=== PATIENT | male | born 1995 | race Caucasian/White ===

== ENCOUNTER 2025-09-08 05:56 | Inpatient (IN) | payer BC, OTHER ==
[~2025-09-08] VITALS: Ht 180.3 cm; Wt 90.0 kg
[2025-09-08 06:50] VITALS: O2SAT 96
[2025-09-08] MEDS: SODIUM CHLORIDE 0.9% 1,000 ML IVB ONE (06:53)
[2025-09-08] MEDS: KETOROLAC TROMETH 30 MG/ML 1ML VIAL IV ONE (06:53)
[2025-09-08] MEDS: ONDANSETRON HCL 4 MG/2 ML VIAL IV ONE ×2 (06:53→07:34)
[2025-09-08 07:00] LABS: Potassium 3.8 mmol/L (3.5-5.1); Sodium 142 mmol/L (136-145)
[2025-09-08 07:01] LABS: Anion Gap 14 (5-15); Calcium 9.5 mg/dL (8.7-10.4); Carbon Dioxide 21 mmol/L (20-31)
--- NOTE | 2025-09-08 07:02 | ED.PDOC ---
GI ASSESSMENT HPI Comments 30 y.o male presents to the ED for a chief complaint of LUQ pain radiating to LLQ pain associated with nausea and vomiting that started 2 hours prior to arrival. Patient describes pain as sharp, constant and has no alleviating factors. He mentions pain woke him from his sleep. No history of previous GI concerns such as Crohn's, diverticulitis or IBS. He denies any marijuana or tobacco use. Chief Complaint: Abdominal Pain Time Seen by MD: 06:30 Reviewed Notes: Nurses Notes, Medications, Allergies Allergies: Coded Allergies: NO KNOWN ALLERGIES (Unverified , 09/08/25) Information Source: Patient Mode of Arrival: Ambulatory Timing: Hours Duration: Since onset Quality: Sharp Vomitus: Hard Stool: Normal Severity: Moderate Recent: None Recent Hx of: None Pain Location: LUQ, LLQ Modifying Factors: Nothing Associated sign and symptoms: Nausea, Vomiting, Abdominal Pain Past Medical History PAST MEDICAL HISTORY: Denies Surgical History: Denies all surgeries Family History Family History: Reviewed,noncontributory to illness Social History Smoker: Non-Smoker Alcohol: Occasionally Drugs: Denies Drug Use Lives In: Home EENTM: denies: blurred vision, double vision, ear bleeding, ear discharge, ear drainage, ear pain, ear ringing, eye pain, eye redness, hearing loss, mouth pain, mouth swelling, nasal discharge, nose bleeding, nose congestion, nose pain, photophobia, tearing, throat pain, throat swelling, voice changes, others Respiratory: denies: cough, hemoptysis, orthopnea, SOB at rest, shortness of breath, SOB with excertion, stridor, wheezing, others Cardiovascular: denies: chest pain, dizzy spells, diaphoresis, Dyspnea on exertion, edema, irregular heart beat, left arm pain, lightheadedness, palpitations, PND, syncope, others Gastrointestinal: reports: abdominal pain, nausea, vomiting; denies: abdomen distended, blood streaked bowels, constipated, diarrhea, dysphagia, difficulty swallowing, hematemesis, melena, poor appetite, poor fluid intake, rectal bleeding, rectal pain, others Genitourinary: denies: burning, dysuria, flank pain, frequency, hematuria, incontinence, penile discharge, penile sore, pain, testicle pain, testicle swelling, urgency, others Neurological: denies: dizziness, fainting, headache, left sided numbness, left sided weakness, numbness, paresthesia, pre-existing deficit, right sided numbness, right sided weakness, seizure, speech problems, tingling, tremors, weakness, others Musculoskeletal: denies: back pain, gout, joint pain, joint swelling, muscle pain, muscle stiffness, neck pain, others Integumetry: denies: bruises, change in color, change in hair/nails, dryness, laceration, lesions, lumps, rash, wounds, others Allergic/Immunocompromised: denies: Difficulty Healing, Frequent Infections, Hives, Itching, others Hematologic/Lymphatic: denies: anemia, blood clots, easy bleeding, easy bruising, swollen glands, others Endocrine: denies: excessive hunger, excessive sweating, excessive thirst, excessive urination, flushing, intolerance to cold, intolerance to heat, unexplained weight gain, unexplained weight loss, others Psychiatric: denies: anxiety, bipolar disorder, depression, hopeless, panic disorder, schizophrenia, sleepless, suicidal, others All Other Systems: Reviewed and Negative Physical Exam General Appearance: Moderate Distress HEENT: Normal ENT Inspection, Pharynx Normal, TMs Normal Neck: Full Range of Motion, Non-Tender, Normal, Normal Inspection Respiratory: Chest Non-Tender, Lungs Clear, No Accessory Muscle Use, No Respiratory Distress, Normal Breath Sounds Cardiovascular: No Edema, No JVD, No Murmur, No Gallop, Normal Peripheral Pulses, Regular Rate/Rhythm Breast Exam: Deferred Gastrointestinal: No Organomegaly, Non Tender, No Pulsatile Mass, Normal Bowel Sounds, Soft Genitalia: Deferred Pelvic: Deferred Rectal: Deferred Extremities: No calf tenderness, Normal capillary refill, Normal inspection, Normal range of motion, Non-tender, No pedal edema Musculoskeletal : Apperance: Normal Neurologic: Alert, 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 Was a procedure done?: No GI differential Dx Differential Diagnosis: Constipation, Diverticular disease, Esophagitis, Gastritis/PUD, Gastroenteritis, Inflammatory BD, Pancreatitis, Dehydration, Electrolyte Imbalance, Food Poisoning, Viral X-Ray, Labs, Meds, VS Vital Signs Date Time Temp Pulse Resp B/P (MAP) Pulse Ox O2 Delivery O2 Flow Rate FiO2 09/08/25 11:00 88 21 94 Room Air* 0 21 09/08/25 11:00 88 21 128/53 (78) 94 09/08/25 10:07 96 Room Air* 0 21 09/08/25 10:00 62 18 110/52 (71) 99 09/08/25 09:00 64 18 118/68 (85) 99 09/08/25 08:20 76 12 163/98 09/08/25 08:02 90 09/08/25 08:00 84 14 163/98 (119) 97 09/08/25 07:36 97.7 78 21 162/103 (122) 98 97.7 09/08/25 07:34 84 20 160/112 09/08/25 07:25 96 Room Air* 0 21 09/08/25 06:56 97.6 81 13 166/118 (134) 97 97.6 09/08/25 06:50 96 Room Air* 0 21 09/08/25 05:58 97.0 83 24 172/102 98 97.0 Lab Test 09/08/25 10:50 09/08/25 06:40 Range/Units Urine Color Light-yellow Yellow Urine Clarity Hazy H Clear Urine pH 5.5 5.0-9.0 Urine Specific [place] 1.015 1.001-1.035 Urine Protein Negative Negative Urine Ketones Negative Negative Urine Blood 3+ H Negative /uL Urine Nitrite Negative Negative Urine Bilirubin Negative Negative Urine Urobilinogen Normal Negative mg/dL Urine Leukocyte Esterase Negative Negative /uL Urine RBC 19 0 - 3 /hpf Urine Microscopic WBC 1 0-3 /HPF Urine Squamous Epithelial Cells None seen <5 /hpf Urine Bacteria None seen None Seen /hpf Urine Mucus Few None Seen Urine Glucose Normal Normal mg/dL Sodium Level 142 136-145 mmol/L Potassium Level 3.8 3.5-5.1 mmol/L Chloride Level 107 98-107 mmol/L Carbon Dioxide Level 21 20-31 mmol/L Anion Gap 14 5-15 Blood Urea Nitrogen 10 9-23 mg/dL Creatinine 1.32 H 0.700-1.30 mg/dL Glomerular Filtration Rate Calc 75 >90 mL/min BUN/Creatinine Ratio 7.6 L 10.0-20.0 Serum Glucose 136 H 74-106 mg/dL Calcium Level 9.5 8.7-10.4 mg/dL Current Medications Medications (Trade) Dose Ordered Sig/Hemalatha Route Start Time Stop Time Status Last Admin Ondansetron HCl (Zofran) 4 mg ONCE ONCE IV 09/08/25 06:45 09/08/25 06:46 DC 09/08/25 06:53 Sodium Chloride 1,000 ml @ 1,000 mls/hr Q1H ONCE IVB 09/08/25 06:45 09/08/25 07:44 DC 09/08/25 06:53 Ketorolac Tromethamine (Toradol Injection) 30 mg ONCE ONCE IV 09/08/25 06:45 09/08/25 06:46 DC 09/08/25 06:53 Morphine Sulfate 2 mg ONCE ONCE IV 09/08/25 07:30 09/08/25 07:31 DC 09/08/25 07:34 Ondansetron HCl (Zofran) 4 mg ONCE ONCE IV 09/08/25 07:30 09/08/25 07:31 DC 09/08/25 07:34 [place] [address] Ph: [phone] DIAGNOSTIC IMAGING Diagnostic Imaging Report : [id number] Signed PATIENT: HUMA CHRISTINA ACCT: [id number] UNIT: [id number] : 1995 LOC: ER ROOM / BED: / AGE / SEX: 30 / M ADM STATUS: REG ER SERVICE 0642 ORDERING PHYSICIAN: ARCADIO MCNAIR MD PROCEDURE(s): ABPL - CT AB PEL WO CON-NO ORAL OR IV REASON: stone ORDER NUMBER(s): [id number], ACCESSION NUMBER(s): [id number] Exam: CT CT AB PEL WO CON-NO ORAL OR IV History: stone Comparison Study: None Technique: Multidetector spiral CT of the abdomen was performed from lung bases to pubic symphysis. Imaging was performed without IV contrast. Axial, coronal and sagittal multiplanar reformats were obtained from the axial data set by the technologist. Radiation Dose : 1. Abdomen/Pelvis: CTDIvol 10.04 mGy, DLP 547.24 mGy*cm. Findings: Evaluation of solid organs is limited due to lack of intravenous contrast use. Lung Bases: No acute or significant lung base finding. Normal heart size. No pleural or pericardial effusion. Liver: Borderline hepatomegaly. No focal lesions. Gallbladder and Biliary Tree: Unremarkable Spleen: Unremarkable Pancreas: The pancreas is grossly normal in appearance. Adrenal Glands: Unremarkable Kidneys: Multiple bilateral nonobstructing renal stones are present. Mild left hydroureteronephrosis. Bladder: Grossly unremarkable for degree of distention. Bowel: The stomach is grossly normal in appearance. Small bowel and colon are normal in caliber and distribution. The appendix is unremarkable. Ascites: Absent Lymphadenopathy: No mesenteric, retroperitoneal or periportal lymphadenopathy. Abdominal Wall and Mesentery: Unremarkable. Vasculature: The visualized abdominal aorta is normal in size and caliber. Evaluation of abdominal and pelvic vessels is limited due to lack of intravenous contrast. Pelvic Organs: Unremarkable Musculoskeletal: No aggressive focal bony lesions, acute fractures or dislocation. Hiatal Hernia: Small hiatal hernia. Ureters: 0.3 cm stone in the distal left ureter. IMPRESSION: Mild left hydroureteronephrosis with 0.3 cm stone in the distal left ureter. Multiple bilateral nonobstructing renal stones. Small hiatal hernia. Radiation optimization: All CT scans at this facility use at least one of these dose optimization techniques: automated exposure control mA and/or kV adjustment per patient size (includes targeted exams where dose is matched to clinical indication) or iterative reconstruction. ATED BY: RASHEED LEW MD DICTATED DATE/TIME: 09/08/25845 SIGNED BY: RASHEED LEW MD SIGNED DATE/TIME: 09/08/25845 CC: Patient alert. Complaining of abdominal pain. Vitals stable. Answering questions. Establish intravenous access. Was given fluids. CT scan reviewed shows Kidney stone. Was given pain medication. Explained to the patient. Continue monitoring. Time of 1ST Reevaluation: 06:59 Reevaluation 1ST: Unchanged Patient Education/Counseling: Diagnosis, Treatment, Prognosis Family Education/Counseling: Diagnosis, Treatment, Prognosis SEPSIS Sepsis Screen Date sepsis recognized/suspect: Sep 08, 2025 Time Sepsis recognized/suspect: 0600 Recent Procedure: No On Antibiotic Therapy: No Respiratory Rate >20: No Heart Rate >90: No Temp<36 C (96.8 F) or >38.3 C: No SBP <90 or MAP <65 mmHG: No New Acute Mental Status Change: No Is the patient on CPAP, BIPAP,: No Physician Orders Ct Ab Pel Wo Con-No Oral Or Iv (09/08/25 06:42) Vital Signs Date Time Temp Pulse Resp B/P (MAP) Pulse Ox O2 Delivery O2 Flow Rate FiO2 09/08/25 11:00 88 21 94 Room Air* 0 21 09/08/25 11:00 88 21 128/53 (78) 94 09/08/25 10:07 96 Room Air* 0 21 09/08/25 10:00 62 18 110/52 (71) 99 09/08/25 09:00 64 18 118/68 (85) 99 09/08/25 08:20 76 12 163/98 09/08/25 08:02 90 09/08/25 08:00 84 14 163/98 (119) 97 09/08/25 07:36 97.7 78 21 162/103 (122) 98 97.7 09/08/25 07:34 84 20 160/112 09/08/25 07:25 96 Room Air* 0 09/08/25 06:56 97.6 81 13 166/118 (134) 97 97.6 09/08/25 06:50 96 Room Air* 0 09/08/25 05:58 97.0 83 24 172/102 98 97.0 Medications Medications Dose Ordered Sig/Hemalatha Route Start Time Stop Time Status Last Admin Dose Admin Ketorolac Tromethamine 30 mg ONCE ONCE IV 09/08/25 06:45 09/08/25 06:46 DC 09/08/25 06:53 Morphine Sulfate 2 mg ONCE ONCE IV 09/08/25 07:30 09/08/25 07:31 DC 09/08/25 07:34 Ondansetron HCl 4 mg ONCE ONCE IV 09/08/25 06:45 09/08/25 06:46 DC 09/08/25 06:53 Ondansetron HCl 4 mg ONCE ONCE IV 09/08/25 07:30 09/08/25 07:31 DC 09/08/25 07:34 Sodium Chloride 1,000 ml @ 1,000 mls/hr Q1H ONCE IVB 09/08/25 06:45 09/08/25 07:44 DC 09/08/25 06:53 Departure 1 Departure Time of Disposition: 17:40 Impression: Primary Impression: Acute abdominal pain Additional Impression: Kidney stone Disposition: 09 ADMITTED INPATIENT Admit to: Med Surg Condition: Guarded Critical Care Note Critical Care Time?: No Stability Stability form required: No I personally scribed for ARCADIO MCNAIR MD ([email or web address]) on 09/08/25 at 07:02. Electronically submitted by Jami Vickers ([facility]). I personally scribed for ARCADIO MCNAIR MD ([email or web address]) on 09/08/25 at 10:29. Electronically submitted by Marcell Alva ([email or web address]). ARCADIO MCNAIR MD Sep 08, 2025 07:02
[2025-09-08 07:05] LABS: Chloride 107 mmol/L (98-107)
[2025-09-08 07:06] LABS: BUN/Creatinine Ratio 7.6 (10.0-20.0); Blood Urea Nitrogen 10 mg/dL (9-23)
[2025-09-08 07:09] LABS: Glucose 136 mg/dL (74-106)
[2025-09-08 07:25] VITALS: O2SAT 96
[2025-09-08] MEDS: MORPHINE SULFATE INJ 2 MG/ml SYRG IV ONE (07:34)
[2025-09-08] MEDS: PROCHLORPERAZINE EDISYLATE 5 MG/ML 2ML VIAL IV ONE (08:17)
--- NOTE | 2025-09-08 08:49 | DVH ---
Exam: CT CT AB PEL WO CON-NO ORAL OR IV History: stone Comparison Study: None Technique: Multidetector spiral CT of the abdomen was performed from lung bases to pubic symphysis. I maging was performed without IV contrast. Axial, coronal and sagittal multiplanar reformats were obta ined from the axial data set by the technologist. Radiation Dose : 1. Abdomen/Pelvis: CTDIvol 10.04 mGy, DLP 547.24 mGy*cm. Findings: Evaluation of solid organs is limited due to lack of intravenous contrast use. Lung Bases: No acute or significant lung base finding. Normal heart size. No pleural or pericardial e ffusion. Liver: Borderline hepatomegaly. No focal lesions. Gallbladder and Biliary Tree: Unremarkable Spleen: Unremarkable Pancreas: The pancreas is grossly normal in appearance. Adrenal Glands: Unremarkable Kidneys: Multiple bilateral nonobstructing renal stones are present. Mild left hydroureteronephrosis. Bladder: Grossly unremarkable for degree of distention. Bowel: The stomach is grossly normal in appearance. Small bowel and colon are normal in caliber and d istribution. The appendix is unremarkable. Ascites: Absent Lymphadenopathy: No mesenteric, retroperitoneal or periportal lymphadenopathy. Abdominal Wall and Mesentery: Unremarkable. Vasculature: The visualized abdominal aorta is normal in size and caliber. Evaluation of abdominal an d pelvic vessels is limited due to lack of intravenous contrast. Pelvic Organs: Unremarkable Musculoskeletal: No aggressive focal bony lesions, acute fractures or dislocation. Hiatal Hernia: Small hiatal hernia. Ureters: 0.3 cm stone in the distal left ureter. IMPRESSION: Mild left hydroureteronephrosis with 0.3 cm stone in the distal left ureter. Multiple bilateral nonobstructing renal stones. Small hiatal hernia. Radiation optimization: All CT scans at this facility use at least one of these dose optimization maia hniques: automated exposure control mA and/or kV adjustment per patient size (includes targeted exam s where dose is matched to clinical indication) or iterative reconstruction.
[2025-09-08 11:00] VITALS: PULSE 88; RESP 21; O2SAT 94
[2025-09-08 11:21] LABS: Urine Protein, UAD Negative (Negative)
[2025-09-08] MEDS ORDERED: NITROGLYCERIN 0.4 MG SL TAB SL PRN (13:30)
[2025-09-08] MEDS ORDERED: MORPHINE SULFATE INJ 2 MG/ml SYRG IV PRN (13:30)
[2025-09-08] MEDS ORDERED: ACETAMINOPHEN 325 MG TAB PO PRN (13:30)
--- NOTE | 2025-09-08 13:30 | DVHHPRES ---
History of Present Illness Resident Creating Document: ANNMARIE ANDRADE RESIDENT History of Present Illness 30 y.o male presents to the ED for a chief complaint of LUQ pain radiating to LLQ pain associated with nausea and vomiting , Pt presents with severe left- sided flank pain that began at 5 AM. The pain was described as extremely severe, rating 10 out of 10 in intensity. The pain was localized to the left flank area without radiation to the lower abdomen or back. The patient reports feeling better after the initial episode resolved around 8 AM while he was working. He denies any other medical conditions and reports not taking any medications at home. Past Social History - Substance Use: Current tobacco smoker, denies marijuana or other recreational drugs, alcohol . reports drinking every week Review of Systems Review of Systems CONSTITUTIONAL: Denies weight loss, fever and chills. HEENT: Denies changes in vision and hearing. RESPIRATORY: Denies SOB and cough. CV: Denies palpitations and chest pain. Gastrointestinal: Positive for nausea with dry heaving. : Denies dysuria and urinary frequency. MSK: Denies myalgia and joint pain. SKIN: Denies rash and pruritus. NEUROLOGICAL: Denies headache Allergies: Coded Allergies: NO KNOWN ALLERGIES (Unverified , 09/08/25) Exam Vital Signs Vital Signs Date Time Temp Pulse Resp B/P (MAP) Pulse Ox O2 Delivery O2 Flow Rate FiO2 09/08/25 11:00 88 21 94 Room Air* 0 21 09/08/25 11:00 128/53 (78) 09/08/25 07:36 97.7 97.7 Exam GENERAL: Not in acute distress. HEENT: EOMI, Moist mucous membranes. No scleral icterus. No cervical lymphadenopathy. LUNGS: Clear to auscultation bilaterally. No accessory muscle use. CARDIOVASCULAR: Regular rate and rhythm. No murmur. No JVD. ABDOMEN: Abd is tender. EXTREMITIES: No edema. Nontender. SKIN: No rashes or lesions. Warm. NEUROLOGIC: Alert and oriented X3 Labs/Xrays Labs Test 09/08/25 10:50 09/08/25 06:40 Range/Units Urine Color Light-yellow Yellow Urine Clarity Hazy H Clear Urine pH 5.5 5.0-9.0 Urine Specific [place] 1.015 1.001-1.035 Urine Protein Negative Negative Urine Ketones Negative Negative Urine Blood 3+ H Negative /uL Urine Nitrite Negative Negative Urine Bilirubin Negative Negative Urine Urobilinogen Normal Negative mg/dL Urine Leukocyte Esterase Negative Negative /uL Urine RBC 19 0 - 3 /hpf Urine Microscopic WBC 1 0-3 /HPF Urine Squamous Epithelial Cells None seen <5 /hpf Urine Bacteria None seen None Seen /hpf Urine Mucus Few None Seen Urine Glucose Normal Normal mg/dL Sodium Level 142 136-145 mmol/L Potassium Level 3.8 3.5-5.1 mmol/L Chloride Level 107 98-107 mmol/L Carbon Dioxide Level 21 20-31 mmol/L Anion Gap 14 5-15 Blood Urea Nitrogen 10 9-23 mg/dL Creatinine 1.32 H 0.700-1.30 mg/dL Glomerular Filtration Rate Calc 75 >90 mL/min BUN/Creatinine Ratio 7.6 L 10.0-20.0 Serum Glucose 136 H 74-106 mg/dL Calcium Level 9.5 8.7-10.4 mg/dL SEPSIS Sepsis Screen Date sepsis recognized/suspect: Sep 08, 2025 Time Sepsis recognized/suspect: 1007 Recent Procedure: No On Antibiotic Therapy: No Respiratory Rate >20: No Heart Rate >90: No Temp<36 C (96.8 F) or >38.3 C: No SBP <90 or MAP <65 mmHG: No New Acute Mental Status Change: No Is the patient on CPAP, BIPAP,: No Physician Orders Ct Ab Pel Wo Con-No Oral Or Iv (09/08/25 06:42) Electrocardigram (09/08/25 08:15) Admit (09/08/25 13:26) Code Status (09/08/25 13:26) Full Liq Diet (09/08/25 Lunch) Sodium Chloride Lock (Saline Lock Ns) (09/08/25 14:00) 0.9% Ns 1000 Ml (09/08/25 13:30) Hydrocodone-Acet 5/325mg Tab ([facility] 5/32 (09/08/25 13:30) Complete Blood Count (09/09/25 04:00) Comprehensive Metabolic Panel (09/09/25 04:00) Acetaminophen Tablet (Tylenol Tablet) (09/08/25 13:30) Morphine Sulfate Injection (09/08/25 13:30) Nitroglycerin Sublingual (Ntrostat Subli (09/08/25 13:30) Morphine Sulfate Injection (09/08/25 13:30) Oxygen By Nasal Cannula (09/08/25 13:26) Stat Ekg For Chest Pain (09/08/25 13:26) Notify Md Of Changes From Base (09/08/25 13:26) Tamsulosin Hydrochloride (Flomax) (09/08/25 13:30) Vital Signs Date Time Temp Pulse Resp B/P (MAP) Pulse Ox O2 Delivery O2 Flow Rate FiO2 09/08/25 11:00 88 21 94 Room Air* 0 21 09/08/25 11:00 88 21 128/53 (78) 94 09/08/25 10:07 96 Room Air* 0 21 09/08/25 10:00 62 18 110/52 (71) 99 09/08/25 09:00 64 18 118/68 (85) 99 09/08/25 08:20 76 12 163/98 09/08/25 08:02 90 09/08/25 08:00 84 14 163/98 (119) 97 09/08/25 07:36 97.7 78 21 162/103 (122) 98 97.7 09/08/25 07:34 84 20 160/112 09/08/25 07:25 96 Room Air* 0 21 09/08/25 06:56 97.6 81 13 166/118 (134) 97 97.6 09/08/25 06:50 96 Room Air* 0 09/08/25 05:58 97.0 83 24 172/102 98 97.0 Medications Medications Dose Ordered Sig/Hemalatha Route Start Time Stop Time Status Last Admin Dose Admin Ketorolac Tromethamine 30 mg ONCE ONCE IV 09/08/25 06:45 09/08/25 06:46 DC 09/08/25 06:53 30 MG Morphine Sulfate 2 mg ONCE ONCE IV 09/08/25 07:30 09/08/25 07:31 DC 09/08/25 07:34 2 MG Ondansetron HCl 4 mg ONCE ONCE IV 09/08/25 06:45 09/08/25 06:46 DC 09/08/25 06:53 4 MG Ondansetron HCl 4 mg ONCE ONCE IV 09/08/25 07:30 09/08/25 07:31 DC 09/08/25 07:34 4 MG Sodium Chloride 1,000 ml @ 1,000 mls/hr Q1H ONCE IVB 09/08/25 06:45 09/08/25 07:44 DC 09/08/25 06:53 1,000 MLS/HR Assessment/Plan Assessment/Plan # intractable abdominal pain due to Nephrolithiasis - CT abdomen pelvis shows: Mild left hydroureteronephrosis with 0.3 cm stone in the distal left ureter. Multiple bilateral nonobstructing renal stones. - Admit for pain management and stone passage monitoring - Administer morphine every 4 hours as needed for pain control - Flomax 0.4 mg daily - continue IV fluid - Increase fluid intake - Consult urology if stone does not pass spontaneously # Alcohol use # Nicotine use disorder - Patient reports current nicotine use by vaping - counseled for quitting nicotine use for more than 10 minutes. Goal of care discussed with patient for 36 minutes: Full code Plan discussed with Dr. Cummins. Plan discussed with: Patient My Orders Orders - ANNMARIE ANDRADE Procedure Category Date Status Time Admit ADMIT 09/08/25 Transmitted 13:26 Code Status CODE 09/08/25 Transmitted 13:26 Full Liq Diet DIET 09/08/25 Transmitted Lunch Sodium Chloride Lock PHA 09/08/25 Transmitted (Saline Lock Ns) 14:00 0.9% Ns 1000 Ml PHA 09/08/25 Transmitted 13:30 Hydrocodone-Acet PHA 09/08/25 Transmitted 5/325mg Tab ([facility] 13:30 Complete Blood Count LAB 09/09/25 Verified 04:00 Comprehensive LAB 09/09/25 Verified Metabolic Panel 04:00 Acetaminophen Tablet PHA 09/08/25 Transmitted (Tylenol Tablet) 13:30 Morphine Sulfate PHA 09/08/25 Transmitted Injection 13:30 Nitroglycerin PHA 09/08/25 Transmitted Sublingual (Ntrostat 13:30 Morphine Sulfate PHA 09/08/25 Transmitted Injection 13:30 Oxygen By Nasal RT 09/08/25 Transmitted Cannula 13:26 Stat Ekg For Chest MARIBEL 09/08/25 Transmitted Pain 13:26 Notify Md Of Changes MARIBEL 09/08/25 Transmitted From Base 13:26 Tamsulosin PHA 09/08/25 Transmitted Hydrochloride (Flomax) 13:30 Date of Service: Sep 08, 2025 Billing Provider: XOCHILT CUMMINS MD Common Visit Codes: 24577-ICYIXYO INP/OBS CARE (HIGH) Secondary Visit Codes: 93976-HFAOREPN CARE PLAN 30 MINUTES ANNMARIE ANDRADE Sep 08, 2025 13:30
[2025-09-08] MEDS: SODIUM CHLOR 0.9% PF (SALINE LOCK) 10ML VIAL/SYR IV SCH (13:33)
--- NOTE | 2025-09-08 13:50 | ECG ---
[facility] Test Date: 2025-09-08 Test Time: 08:02:19 Pat Name: HUMA CHRISTINA Department[facility] ED Room: [address] [place] [address] Gender: M Timber Bucker: syd : 1995 Requested By: ARCADIO MCNAIR Order Number: [id number] Reading MD: Measurements Intervals [place] Rate: 98 P: 74 RI: 212 QRS: 49 QRSD: 93 T: 6 QT: 363 QTc: 464 Interpretive Statements Sinus rhythm Prolonged RI interval Please click the below link to view image of tracing.
[2025-09-08] MEDS: SODIUM CHLORIDE 0.9% 1,000 ML IV SCH (14:05)
[2025-09-08] MEDS: MORPHINE SULFATE INJ 2 MG/ml SYRG IV PRN (14:05)
[2025-09-08] MEDS: TAMSULOSIN HYDROCHLORIDE 0.4 MG CAP PO SCH (14:05)
[2025-09-08] MEDS: ONDANSETRON HCL 4 MG/2 ML VIAL ONE (14:05)
[2025-09-08] MEDS: ONDANSETRON HCL 4 MG/2 ML VIAL IV PRN (14:06)
[2025-09-08 17:00] VITALS: BP 137/86; PULSE 83; RESP 18; TEMP 99.4; O2SAT 94
[2025-09-08] MEDS: HYDROcodone-ACET 5/325MG TAB PO PRN (20:26)
[2025-09-08 21:00] VITALS: BP 149/98; PULSE 86; RESP 19; TEMP 98.1; O2SAT 98
[2025-09-09 01:00] VITALS: BP 156/97; PULSE 87; RESP 20; TEMP 97.6; O2SAT 98
[2025-09-09 05:00] VITALS: BP 116/75; PULSE 83; RESP 16; O2SAT 98
[2025-09-09 07:14] LABS: Hematocrit 41.7 % (41.0-53.0); Hemoglobin 14.3 g/dL (13.5-17.5); Mean Corpuscular Hemoglobin 29.4 pg (28.0-32.0); Mean Corpuscular Volume 85.5 fL (80.0-100.0); Nucleated Red Blood Cells % 0.0 %
[2025-09-09 07:33] LABS: Alanine Aminotransferase 19 U/L (7-40); Albumin 4.1 g/dL (3.2-4.8); Alkaline Phosphatase 86 U/L (46-116); Anion Gap 9 (5-15); BUN/Creatinine Ratio 5.9 (10.0-20.0); Bilirubin, Total 1.1 mg/dL (0.2-1.0); Calcium 9.0 mg/dL (8.7-10.4); Carbon Dioxide 28 mmol/L (20-31); Chloride 105 mmol/L (98-107); Glucose 96 mg/dL (74-106); Potassium 3.8 mmol/L (3.5-5.1); Sodium 142 mmol/L (136-145); Total Protein 6.2 g/dL (5.7-8.2)
[2025-09-09 07:36] LABS: Blood Urea Nitrogen 7 mg/dL (9-23)
[2025-09-09 09:00] VITALS: BP 126/82; PULSE 86; RESP 18; TEMP 98.7; O2SAT 97
[2025-09-09 13:00] VITALS: BP 135/91; PULSE 71; RESP 16; TEMP 98.7; O2SAT 98
[2025-09-09 13:55] VITALS: BP 135/91; PULSE 71; RESP 16; TEMP 98.7; O2SAT 98
== END 2025-09-09 15:19 | disposition home or self-care (01) | DRG 694 ==
LOC: ER 05:56 → OVERFLOW 13:26 → WEST WING 14:48
PROVIDERS: ADMIT Internal Medicine; ATTEND Emergency Medicine
DX: N13.2 Hydronephrosis with renal and ureteral calculous obstruction (principal); F17.200 Nicotine dependence, unspecified, uncomplicated; F10.90 Alcohol use, unspecified, uncomplicated; Y90.9 Presence of alcohol in blood, level not specified
CPT/HCPCS: 36415; 74176; 80048; 80053; 81001; 82360; 85025; 93005; 96361; 96374; 96375; G0378; J1885; J2405